=== PATIENT | female | born 1975 ===

== ENCOUNTER 2016-06-29 22:49 | Emergency (ER) | payer MEDICAID ==
[2016-06-29 23:24] LABS: SPECIFIC GRAVITY 1.015 (1.001-1.030); URINE APPEARANCE SL CLOUDY; URINE BILIRUBIN NEGATIVE (NEGATIVE); URINE BLOOD TRACE (NEGATIVE); URINE COLOR YELLOW; URINE GLUCOSE (UA) NEGATIVE (NEGATIVE); URINE LEUKOCYTE ESTERASE TRACE (NEGATIVE); URINE NITRITE NEGATIVE (NEGATIVE); URINE PROTEIN NEGATIVE (NEGATIVE); URINE UROBILINOGEN NORMAL (0-1 mg/dl)
[2016-06-29 23:27] LABS: HCG,QUALITATIVE URINE POSITIVE
[2016-06-29 23:30] LABS: URINE AMORPHOUS SEDIMENT 4+; URINE BACTERIA TRACE; URINE RBC 0-2 /hpf; URINE WBC 0-1 /hpf
[2016-06-30] MEDS ORDERED: PROCHLORPERAZINE 5 MG/ML 2 ML VIAL ONE (00:04)
[2016-06-30] MEDS ORDERED: LACTATED RINGERS 1,000 ML ONE (00:04)
[2016-06-30] MEDS ORDERED: MORPHINE SULFATE 4 MG/ML SYRINGE ONE (00:04)
[2016-06-30 00:29] LABS: ABSOLUTE NEUTROPHIL COUNT 6.6 K/mm3 (1.8-7.7); BASO % 0.2 % (0.2-1.0); EOS % 0.5 % (0.9-2.9); HEMOGLOBIN 10.2 gm/l (12.0-16.0); IMM NEUT% 0.5 % (0-1); LYMPH # 1.3 (1.0-4.8); LYMPH % 15.3 % (15-45); MEAN CELL VOLUME 92.9 fl (81.0-99.0); MEAN CORPUSCULAR HEMOGLOBIN 31.6 pg (27.0-31.0); MEAN PLATELET VOLUME 9.8 fl (7.4-10.4); MONO # 0.5 (0.0-0.8); MONO % 5.7 % (4-12); NEUT % 77.8 % (43-75); PLATELET COUNT 197 K/mm3 (130-400); RED CELL DISTRIBUTION WIDTH 13.8 % (11.5-14.5)
[2016-06-30 00:42] LABS: ALB/GLOB RATIO 1.1 (>1.0); ALBUMIN 3.4 gm/dL (3.5-5.7); CALCIUM 8.5 mg/dL (8.6-10.3)
[2016-06-30] MEDS ORDERED: SUCRALFATE 1 G/10 ML DOSE ONE (02:21)
[2016-06-30] MEDS ORDERED: MAALOX/LIDO2%VISC/SIMETHICONE 40 ML BOT ONE (02:21)
[2016-06-30] MEDS ORDERED: FAMOTIDINE 20 MG TABLET ONE (02:21)
--- NOTE | 2016-06-30 08:48 | US ---
ABDOMINAL-LIMITED: 06/30/2016 12:02 AM CLINICAL HISTORY: Patient is 5 months . Nausea and vomiting with right upper quadrant pain. History of cholelithiasis.. STUDY: Limited right upper quadrant ultrasound COMPARISON: none FINDINGS: Gallbladder: Wall thickness: Normal Cholelithiasis: Multiple mobile shadowing stones are present. Pericholecystic Fluid: none Sonographic Park's Sign: Patient has been premedicated making sonographic Park sign equivocal. Bile ducts: Common bile duct measures upwards 6 mm. Limited visualized Liver and RUQ structures: normal IMPRESSION: Cholelithiasis without sonographic findings of acute cholecystitis. Sonographic Park sign is equivocal given administration of pain medication to the patient. Common bile duct is mildly dilated for patient of this age. ERCP or MRCP could be helpful in further assessment as clinically warranted. Preliminary report was provided by Gerhard at approximately 0148 hours on 06/30/2016.
== END 2016-06-30 02:31 | disposition home or self-care (01) ==
LOC: ED 22:49
DX: O26.612 Liver and biliary tract disorders in pregnancy, second trimester (principal); K80.20 Calculus of gallbladder without cholecystitis without obstruction; R10.9 Unspecified abdominal pain; Z3A.20 20 weeks gestation of pregnancy
CPT/HCPCS: 83690; 81025; 85025; 80053; 81001; 76705; 96375; 99284 ×2; 96374; 93005; A9270 ×3; J0780; J2270; J7120